=== PATIENT | male | born 1955 | race Caucasian/White ===

== ENCOUNTER 2018-11-20 01:13 | Inpatient (IN) | payer SELFPAY ==
[2018-11-20] MEDS: ACETAMINOPHEN 325 MG TAB PO (01:45)
[2018-11-20 01:46] LABS: ADD MAN DIFF? NO
[2018-11-20] MEDS: SODIUM CHLORIDE 0.9% 1L BAG IV* (01:46)
[2018-11-20 01:48] LABS: WHITE BLOOD COUNT 13.6 10^3/ul (4.8-10.8)
[2018-11-20 01:48] LABS: BASOPHIL # 0.1 10^3/ul (0.0-0.1); BASOPHILS % 0.4 % (0.0-2.0); EOSINOPHILS # 0.3 10^3/ul (0.0-0.5); EOSINOPHILS % 2.3 % (0.0-7.0); HEMATOCRIT 45.1 % (42.0-52.0); HEMOGLOBIN 15.1 g/dl (14.0-18.0); LYMPHOCYTES # 2.1 10^3/ul (0.8-2.9); LYMPHOCYTES % 15.2 % (15.0-51.0); MEAN CORPUSCULAR HEMOGLOBIN 29.2 pg (29.0-33.0); MEAN CORPUSCULAR HGB CONC 33.5 g/dl (32.0-37.0); MEAN CORPUSCULAR VOLUME 87.2 fl (82.0-101.0); MEAN PLATELET VOLUME 10.2 fl (7.4-10.4); MONOCYTE # 0.8 10^3/ul (0.3-0.9); NEUTROPHIL # 10.3 10^3/ul (1.6-7.5); NEUTROPHILS % 75.5 % (39.0-77.0); PLATELET COUNT 163 10^3/UL (140-415); RED BLOOD COUNT 5.17 10^6/ul (4.70-6.10); RED CELL DISTRIBUTION WIDTH 13.2 % (11.5-14.5)
[2018-11-20 01:55] LABS: INR 0.96; PROTIME 12.9 Sec (11.9-14.9)
[2018-11-20 01:56] LABS: PARTIAL THROMBOPLASTIN TIME 28.7 Sec (23.0-35.0)
[2018-11-20 01:58] LABS: ALANINE AMINOTRANSFERASE 26 IU/L (13-69); ALBUMIN 4.4 g/dl (3.3-4.9); ALBUMIN/GLOBULIN RATIO 1.33; ALKALINE PHOSPHATASE 115 IU/L (42-121); ANION GAP 9 (5-13); ASPARTATE AMINO TRANSFERASE 35 IU/L (15-46); BILIRUBIN,INDIRECT 0.8 mg/dl (0-1.1); BILIRUBIN,TOTAL 0.8 mg/dl (0.2-1.3); BLOOD UREA NITROGEN 22 mg/dl (7-20); CALCIUM 9.3 mg/dl (8.4-10.2); CARBON DIOXIDE 30 mmol/L (21-31); CHLORIDE 100 mmol/L (97-110); CREATININE 1.23 mg/dl (0.61-1.24); Estimated GFR 59 mL/min (>60); GLUCOSE 115 mg/dl (70-220); POTASSIUM 3.7 mmol/L (3.5-5.1); SODIUM 139 mmol/L (135-144); TOTAL PROTEIN 7.7 g/dl (6.1-8.1)
[2018-11-20] MEDS: IPRATROPIUM (NEB) 0.5 MG/2.5 ML AMP INH (02:04)
[2018-11-20] MEDS: LEVALBUTEROL (NEB) 1.25 MG/0.5 ML AMP INH (02:04)
[2018-11-20 02:10] LABS: TROPONIN-I < 0.012 ng/ml (0.000-0.120)
[2018-11-20 02:12] LABS: URINE PH (Dip) POC 5.5 (5.0-8.5)
[2018-11-20 02:12] LABS: URINE BLOOD (Dip) POC 2+ (NEGATIVE); URINE GLUCOSE (Dip) POC Negative (NEGATIVE); URINE KETONES (Dip) POC 1+ (NEGATIVE); URINE LEUKOCYTE EST (Dip) POC Negative (NEGATIVE); URINE NITRITE (Dip) POC Negative (NEGATIVE); URINE TOTAL PROTEIN POC 2+ (NEGATIVE)
[2018-11-20 02:24] LABS: ADD UMIC YES; UR ASCORBIC ACID NEGATIVE (NEGATIVE); UR BACTERIA FEW /HPF (NONE SEEN); UR BILIRUBIN (Dip) NEGATIVE (NEGATIVE); UR BLOOD (Dip) 2+ mg/dL (NEGATIVE); UR CLARITY SLIGHTLY CLOUDY (CLEAR); UR COLOR AMBER (YELLOW); UR GLUCOSE (Dip) NEGATIVE (NEGATIVE); UR KETONES (Dip) 1+ mg/dL (NEGATIVE); UR LEUKOCYTE ESTERASE (Dip) NEGATIVE Leu/ul (NEGATIVE); UR MUCUS MANY /HPF (NONE SEEN); UR NITRITE (Dip) NEGATIVE (NEGATIVE); UR RBC 2 /HPF (0-5); UR SPECIFIC GRAVITY (Dip) 1.034 (1.003-1.030); UR TOTAL PROTEIN (Dip) 1+ mg/dl (NEGATIVE); UR UROBILINOGEN (Dip) 1+ mg/dL (NEGATIVE); UR WBC 1 /HPF (0-5)
[2018-11-20] MEDS ORDERED: ACETAMINOPHEN 325 MG TAB PO (04:00)
[2018-11-20] MEDS ORDERED: DOCUSATE SODIUM 100 MG CAP PO (04:00)
[2018-11-20] MEDS ORDERED: ONDANSETRON 4 MG INJ IV (04:00)
[2018-11-20] MEDS ORDERED: NACL 0.9% 3 ML SYG IV (04:00)
[2018-11-20] MEDS ORDERED: BISACODYL (EC) 5 MG TAB PO (04:00)
[2018-11-20] MEDS: METHYLPREDNISOLONE 125 MG INJ IV (04:24)
[2018-11-20] MEDS: OSELTAMIVIR 75 MG CAP PO ×3 (04:24→21:15)
[2018-11-20 04:30] LABS: D-DIMER 668.58 ng/ml (<460)
[2018-11-20 04:57] LABS: LACTIC ACID 1.3 mmol/L (0.5-2.0)
[2018-11-20] MEDS: LEVALBUTEROL (NEB) 1.25 MG/0.5 ML AMP HHN ×7 (05:01→21:59)
[2018-11-20] MEDS: predniSONE 20 MG TAB PO (09:15)
[2018-11-20] MEDS: PANTOPRAZOLE (EC) 40 MG TAB PO (09:16)
[2018-11-20] MEDS: LISINOPRIL 20 MG TAB PO (11:00)
[2018-11-20] MEDS ORDERED: OSELTAMIVIR 75 MG CAP (19:50)
[2018-11-21] MEDS: LEVALBUTEROL (NEB) 1.25 MG/0.5 ML AMP HHN ×5 (00:40→17:00)
[2018-11-21] MEDS: PANTOPRAZOLE (EC) 40 MG TAB PO (05:12)
[2018-11-21 05:57] LABS: ADD MAN DIFF? NO
[2018-11-21 06:01] LABS: BASOPHILS % 0.2 % (0.0-2.0); EOSINOPHILS # 0.1 10^3/ul (0.0-0.5); EOSINOPHILS % 0.3 % (0.0-7.0); HEMATOCRIT 41.3 % (42.0-52.0); HEMOGLOBIN 13.7 g/dl (14.0-18.0); LYMPHOCYTES # 1.3 10^3/ul (0.8-2.9); LYMPHOCYTES % 8.3 % (15.0-51.0); MEAN CORPUSCULAR HEMOGLOBIN 28.7 pg (29.0-33.0); MEAN CORPUSCULAR HGB CONC 33.2 g/dl (32.0-37.0); MEAN CORPUSCULAR VOLUME 86.6 fl (82.0-101.0); MEAN PLATELET VOLUME 10.4 fl (7.4-10.4); MONOCYTE # 1.3 10^3/ul (0.3-0.9); MONOCYTES % 8.9 % (0.0-11.0); NEUTROPHIL # 12.3 10^3/ul (1.6-7.5); NEUTROPHILS % 81.7 % (39.0-77.0); PLATELET COUNT 165 10^3/UL (140-415); RED BLOOD COUNT 4.77 10^6/ul (4.70-6.10); RED CELL DISTRIBUTION WIDTH 13.4 % (11.5-14.5)
[2018-11-21 06:01] LABS: WHITE BLOOD COUNT 15.1 10^3/ul (4.8-10.8)
[2018-11-21 06:47] LABS: ALANINE AMINOTRANSFERASE 28 IU/L (13-69); ALBUMIN 3.7 g/dl (3.3-4.9); ALBUMIN/GLOBULIN RATIO 1.23; ALKALINE PHOSPHATASE 83 IU/L (42-121); ANION GAP 9 (5-13); ASPARTATE AMINO TRANSFERASE 36 IU/L (15-46); BILIRUBIN,INDIRECT 0.5 mg/dl (0-1.1); BILIRUBIN,TOTAL 0.5 mg/dl (0.2-1.3); BLOOD UREA NITROGEN 15 mg/dl (7-20); CARBON DIOXIDE 26 mmol/L (21-31); CHLORIDE 105 mmol/L (97-110); CHOL/HDL RATIO 3.6 RATIO; CHOLESTEROL 193 mg/dl (100-200); CREATININE 0.84 mg/dl (0.61-1.24); Estimated GFR > 60 mL/min (>60); GLUCOSE 114 mg/dl (70-220); HDL CHOLESTEROL 53 mg/dl (30-78); LDL CHOLESTEROL,CALCULATED 123 mg/dl; MAGNESIUM 2.3 mg/dl (1.7-2.5); POTASSIUM 3.6 mmol/L (3.5-5.1); SODIUM 140 mmol/L (135-144); TOTAL PROTEIN 6.7 g/dl (6.1-8.1); TRIGLYCERIDES 86 mg/dl (0-149)
[2018-11-21 07:26] LABS: HEMOGLOBIN A1C 5.6 % (0-5.9)
[2018-11-21] MEDS: LISINOPRIL 20 MG TAB PO (09:17)
[2018-11-21] MEDS: OSELTAMIVIR 75 MG CAP PO ×2 (09:17→18:38)
[2018-11-21] MEDS: predniSONE 20 MG TAB PO (09:18)
[2018-11-21] MEDS: INFLUENZA VIRUS VACCINE 0.5 ML (DISPENSING) IM* (09:20)
== END 2018-11-21 18:59 | disposition home or self-care (01) | DRG 872 ==
LOC: E/R 01:13 → TEL 05:57 → E/R 09:00 → TEL 03:55 → PP2 11:20
PROVIDERS: Family Medicine
DX: A41.89 Other specified sepsis (principal); K76.0 Fatty (change of) liver, not elsewhere classified; E66.9 Obesity, unspecified; K76.89 Other specified diseases of liver; J10.1 Influenza due to other identified influenza virus with other respiratory manifestations; J20.8 Acute bronchitis due to other specified organisms; E86.0 Dehydration; I10 Essential (primary) hypertension; Z68.32 Body mass index [BMI] 32.0-32.9, adult; Z71.3 Dietary counseling and surveillance
CPT/HCPCS: 36415; 71045; 71275; 76705; 80053; 80061; 81001; 81003; 83036; 83605; 83735; 84443; 84484; 85025; 85378; 85610; 85730; 87040; 87086; 87400; 90686; 93005; 93970; 94640; 94644; 94664; 99285-25